=== PATIENT | female | born 1970 | race Caucasian/White ===

== ENCOUNTER → 2018-06-03 | Outpatient (CLI) | payer BC ==
[~2018-06-03] MED LIST: AMIT50TA3; CETI10CA; CRAN1CAP; HCT25T; HYDR-3720 PO; MELO7.5T PO; NF-TYLARTH PO; sprintec
--- NOTE | 2018-06-03 11:14 | Diagnostic Imaging Report ---
Indication: Screening. The current study was also evaluated with a Computer Aided Detection (CAD) system. Comparison made with prior examination of 09/11/2015 back through 05/22/2015. 3D tomosynthesis was performed and reviewed. Findings: There are scattered fibroglandular densities bilaterally. There are a few benign type calcifications. There is no dominant mass, spiculated lesion or suspicious calcification identified. The skin, nipples and axilla are unremarkable. Impression: Category 2 benign ACR BI-RADS Category 2: Benign findings. Result letter will be mailed to the patient. Note: At least 10% of breast cancer is not imaged by mammography. Dictated by: Dictated on workstation # [id number]
== END ==
LOC: RAD 07:50
PROVIDERS: ATTEND Nurse Practitioner Family
DX: Z12.31 Encounter for screening mammogram for malignant neoplasm of breast (principal)
CPT/HCPCS: 77067

== ENCOUNTER 2018-08-10 18:26 | Emergency (ER) | payer BC ==
[~2018-08-10] VITALS: Ht 167.6 cm; Wt 176.0 kg
--- OUTSIDE RECORDS SUMMARY | 2018-08-10 18:34 | XMS REPORT | Clinical Summary ---
Author Author [facility] Organization [facility] Address Unknown Phone Unavailable Care Team Providers Care Shredded Filler Machine Wrapper Layer Name Role Phone Unassigned, None PP Unavailable Allergies No Known Allergies Medications End Date Status Medication Sig Dispensed Refills Start Date Active ibuprofen (ADVIL,MOTRIN) Take 200 mg 0 200 MG tablet by mouth every 6 (six) hours as needed for Mild Pain. Active dicyclomine (BENTYL) 10 Take 10 mg by 0 MG capsule mouth 4 (four) times daily as needed. Active cetirizine (ZYRTEC) 10 MG Take 10 mg by 0 tablet mouth daily. Active estradiol (ESTRACE) 1 MG Take 0.5 mg 0 tablet by mouth nightly. Active ALPRAZolam (XANAX) 1 MG Take 1 mg by 0 tablet mouth 2 (two) times daily as needed. Active amitriptyline (ELAVIL) 50 Take 50 mg by 0 MG tablet mouth nightly. Active buPROPion (WELLBUTRIN XL) Take 300 mg 0 300 MG 24 hr tablet by mouth every morning. Active fluticasone (FLONASE) 50 1 spray by 16 g 0 MCG/ACT nasal spray Each Nare 5 route daily as needed for Rhinitis. Active mirtazapine (REMERON) 15 Take 1 tablet 30 tablet 0 MG tabletIndications: (15 mg total) 5 Major Depressive Disorder by mouth nightly. Indications: Major Depressive Disorder Active Problems Problem Noted Date Major depressive disorder, recurrent, severe without psychotic features 01/2015 Anxiety disorder 05/28/2015 Resolved Problems Problem Noted Date Resolved Date Suicidal ideation 05/25/2015 05/28/2015 Depressive disorder 05/24/2015 05/28/2015 Social History Date Tobacco Use Types Packs/Day Years Used Never Smoker Alcohol Use Drinks/Week oz/Week Comments No Sex Assigned at Date Recorded Not on file Industry Job Start Date Occupation Not on file Not on file Not on file Travel End Travel History Travel Start No recent travel history available. Last Filed Vital Signs Time Taken Vital Sign Reading 05/28/2015 9:27 AM [employer] Blood Pressure 156/78 05/28/2015 9:27 AM [employer] Pulse 84 05/28/2015 9:25 AM [employer] Temperature 36.6 C (97.9 F) 05/28/2015 9:25 AM [employer] Respiratory Rate 18 05/28/2015 9:25 AM [employer] Oxygen Saturation 100% - Inhaled Oxygen - Concentration 05/24/2015 3:55 PM [employer] Weight 170.1 kg (375 lb) 05/24/2015 3:55 PM [employer] Height 167.6 cm (5' 6") 05/24/2015 3:55 PM [employer] Body Mass Index 60.53 Plan of Treatment Health Maintenance Due Date Last Done Comments Varicella Vaccines (1 of 1985 2 - 13+ 2-dose series) DTaP,Tdap,and Td Vaccines 11/22/1991 (1 - Tdap) CERVICAL CANCER SCREENING 1993 Influenza Vaccine (#1) 2018 Results Not on filefrom Last 3 Months Insurance Type Payer Benefit Subscriber ID Effective Phone Address Plan / Dates Group [employer] xxxxxxxxx 2013-P [phone] [address] [address] [place] [address] Advance Directives Patient has advance care planning documents, and code status on file. For more information, please contact: [facility] [address] [address] Date Inactivated Comments Code Status Date Activated Full Code 05/28/2015 12:14 PM 05/28/2015 12:14 PM Full Code 05/24/2015 5:18 PM 05/24/2015 5:18 PM Full Code 05/24/2015 5:08 PM
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
[2018-08-10] MEDS ORDERED: ASPIRIN 81 MG CHEW (CHILDREN'S ASA) PO ONE ×2 (18:45)
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
--- OUTSIDE RECORDS SUMMARY | 2018-08-10 18:47 | XMS REPORT ---
Author CONSUELO Shields Organization [employer] Address Unknown Phone Unavailable Care Team Providers Care Commodity Industry Analyst Name Role Phone CONSUELO HANSON CP Unavailable Allergies No Known Allergies Problems Problem Type Condition Code Onset Dates Condition Status Assessment Major depressive disorder, recurrent, moderate F33.1 Active Problem Major depressive disorder, recurrent, moderate F33.1 Active Medications No Known Medications Procedures Procedure Coding System Code Date Psychotherapy, patient &/family, 45 minutes, established patient CPT-4 63427 Jun 11, 2015 Results No Known Results Summary Purpose [employer] Submission
--- OUTSIDE RECORDS SUMMARY | 2018-08-10 18:47 | XMS REPORT ---
Author CONSUELO Shields Organization [employer] Address Unknown Phone Unavailable Care Team Providers Care Workforce Consultant Name Role Phone CONSUELO HANSON CP Unavailable Allergies No Known Allergies Problems Problem Type Condition Code Onset Dates Condition Status Assessment Major depressive disorder, recurrent, moderate F33.1 Active Problem Major depressive disorder, recurrent, moderate F33.1 Active Medications No Known Medications Procedures Procedure Coding System Code Date Psychotherapy, patient &/family, 45 minutes, established patient CPT-4 44340 Jul 10, 2015 Results No Known Results Summary Purpose [employer] Submission
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
--- OUTSIDE RECORDS SUMMARY | 2018-08-10 18:48 | XMS REPORT ---
Author CONSUELO Shields Organization [employer] Address Unknown Phone Unavailable Care Team Providers Care Manager Budget Name Role Phone CONSUELO HANSON CP Unavailable Allergies No Known Allergies Problems Problem Type Condition Code Onset Dates Condition Status Assessment Major depressive disorder, recurrent, moderate F33.1 Active Assessment Anxiety disorder, unspecified F41.9 Active Problem Major depressive disorder, recurrent, moderate F33.1 Active Medications No Known Medications Procedures Procedure Coding System Code Date Psychotherapy, patient &/family, 45 minutes, established patient CPT-4 08862 January 09, 2016 Results No Known Results Summary Purpose [employer] Submission
--- OUTSIDE RECORDS SUMMARY | 2018-08-10 18:48 | XMS REPORT ---
Author Author CARISA BERUMEN [facility] Address Unknown Care Team Providers Care [employer] Name Role Phone CARISA BERUMEN Unavailable PROBLEMS Type Condition ICD9-CM Code [id number] Code Onset Dates Condition Status SNOMED Code Problem Generalized anxiety disorder F41.1 Active 54585389 Problem Major depressive disorder, recurrent, moderate F33.1 Active 71268924 ALLERGIES Unknown Allergies SOCIAL HISTORY No smoking Hx information available PLAN OF CARE Activity Details Follow Up 3 Months Reason: VITAL SIGNS Height 67.7 in 2016-05-20 Weight 341.8 lbs 2016-05-20 Heart Rate 74 bpm 2016-05-20 Respiratory Rate 20 2016-05-20 BMI 52.43 kg/m2 2016-05-20 Blood pressure systolic 138 mmHg 2016-05-20 Blood pressure diastolic 76 mmHg 2016-05-20 MEDICATIONS Medication Instructions Dosage Frequency Start Date End Date Duration Status Zyrtec Allergy 10 MG Orally Once a day 1 tablet as needed 24h Active Mirtazapine 45 MG Orally Once a day 1 tablet before bedtime in the evening 24h May, 30 days Active Biotin 800 MCG Orally Once a day 1 tablet 24h Active Dicyclomine HCl 10 MG Orally Four times a day 1 capsule 6h Active Lexapro 10 MG Orally Once a day 1 tablet 24h Nov, 30 days Active Tylenol 325 MG Orally every 6 hrs 1 tablet as needed 6h Active Amitriptyline HCl 50 MG Orally Once a day 1 tablet 24h Sep, Active Fish Oil 1000 MG Orally Once a day 2 capsules 24h Active Alprazolam 2 MG Orally as needed Twice a day 1 tablet 12h 30 days Active Aleve 220 MG Orally every 12 hrs 1 tablet as needed 12h Active Ibuprofen 200 MG Orally every 6 hrs 1 tablet as needed 6h Active Phentermine HCl 37.5 MG Orally Once a day .5 tab 24h Active Flonase Active Estradiol 0.5 MG Orally Once a day 1 tablet 24h Active Vitamin D-3 1000 UNIT Orally Once a day 5 capsule 24h Active Synthroid 25 MCG Orally Once a day 1 tablet on an empty stomach in the morning 24h Active Womens Daily Formula - Active Sudafed 30 MG Orally every 6 hrs 1 tablet as needed 6h Active RESULTS No Results PROCEDURES Procedure Date Ordered Related Diagnosis Body Site Office Visit, Est Pt., Level 3 May 20, 2016 IMMUNIZATIONS No Known Immunizations
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
--- OUTSIDE RECORDS SUMMARY | 2018-08-10 18:49 | XMS REPORT ---
Author CARISA Meade [facility] eClinicalWorks Address Unknown Phone Unavailable Care Team Providers Care Behavioral Health Technician Name Role Phone CARISA BERUMEN CP Unavailable Allergies, Adverse Reactions, Alerts Substance Reaction Event Type N.K.D.A. Info Not Available Non Drug Allergy Problems Problem Type Condition Code Onset Dates Condition Status Assessment Anxiety disorder, unspecified F41.9 Active Assessment Major depression, recurrent F33.9 Active Problem Major depressive disorder, recurrent, moderate F33.1 Active Medications Medication Code System Code Instructions Start Date End Date Status Dosage Probiotic [facility] [address]95-48502 Orally not defined Tylenol [facility] [address]-33 325 MG Orally every 6 hrs 1 tablet as needed Amitriptyline HCl [facility] [address]-57 50 MG Orally Once a day 1 tablet Biotin [facility] 64922-14875 800 MCG Orally Once a day 1 tablet Zyrtec Allergy [facility] [address]-26 10 MG Orally Once a day 1 tablet as needed Ibuprofen [facility] [address]-22 200 MG Orally every 6 hrs 1 tablet as needed Wellbutrin XL [facility] [address]-06 300 MG Orally Once a day Apr 12, 2015 1 tablet in the morning Estradiol [facility] [address]-12 0.5 MG Orally Once a day 1 tablet Xanax [facility] [address]-72 2 MG Orally Twice a day May 15, 2015 1 tablet Mirtazapine [facility] [address]-12 45 MG Orally Once a day Jun 03, 2015 1 tablet before bedtime in the evening Sudafed [facility] [address]-22 30 MG Orally every 6 hrs 1 tablet as needed Dicyclomine HCl [facility] [address]-05 10 MG Orally Four times a day 1 capsule Aleve [facility] [address]-33 220 MG Orally every 12 hrs 1 tablet as needed Flonase ND 0 not defined Procedures Procedure Coding System Code Date MH Office Visit, Est Pt., Level 3 CPT-4 29348 Jul 17, 2015 Vital Signs Date/Time: Jul 17, 2015 Blood Pressure Systolic 152 mmHg Weight 381 lbs Height 67.7 in BMI 58.44 Index Blood Pressure Diastolic 88 mmHg Results No Known Results Summary Purpose eClinicalWorks Submission
--- OUTSIDE RECORDS SUMMARY | 2018-08-10 18:49 | XMS REPORT ---
Author CONSUELO Shields Organization e[employer] Address Unknown Phone Unavailable Care Team Providers Care Dry Wall Sprayer Name Role Phone CONSUELO HANSON CP Unavailable Allergies No Known Allergies Problems Problem Type Condition Code Onset Dates Condition Status Assessment Major depressive disorder, recurrent, moderate F33.1 Active Problem Major depressive disorder, recurrent, moderate F33.1 Active Medications No Known Medications Procedures Procedure Coding System Code Date Psychotherapy, patient &/family, 45 minutes, established patient CPT-4 91688 October 04, 2015 Results No Known Results Summary Purpose eClinicalWorks Submission
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
--- OUTSIDE RECORDS SUMMARY | 2018-08-10 18:50 | XMS REPORT ---
Author CONSUELO Shields Organization [employer] Address Unknown Phone Unavailable Care Team Providers Care Lead Neurodiagnostic Technologist Name Role Phone CONSUELO HANSON CP Unavailable Allergies No Known Allergies Problems Problem Type Condition Code Onset Dates Condition Status Assessment Major depressive disorder, recurrent, moderate F33.1 Active Assessment Anxiety disorder, unspecified F41.9 Active Problem Major depressive disorder, recurrent, moderate F33.1 Active Medications No Known Medications Procedures Procedure Coding System Code Date Psychotherapy, patient &/family, 45 minutes, established patient CPT-4 18950 December 26, 2015 Results No Known Results Summary Purpose [employer] Submission
--- OUTSIDE RECORDS SUMMARY | 2018-08-10 18:50 | XMS REPORT ---
Author CARISA Meade Organization [employer] Address Unknown Phone Unavailable Care Team Providers Care Education Professor Name Role Phone CARISA BERUMEN Unavailable Allergies No Known Allergies Problems Problem Type Condition Code Onset Dates Condition Status Problem Major depressive disorder, recurrent, moderate F33.1 Active Medications Medication Code System Code Instructions Start Date End Date Status Dosage Xanax [facility] [address]-63 2 MG Orally Twice a day May 15, 2015 1 tablet Results No Known Results Summary Purpose [employer] Submission
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
--- OUTSIDE RECORDS SUMMARY | 2018-08-10 18:51 | XMS REPORT ---
Author Author CONSUELO HANSON [facility] Address [address] [place] [address] Care Team Providers Care Take Up Operator Name Role Phone CONSUELO HANSON Unavailable PROBLEMS Type Condition ICD9-CM Code [id number] Code Onset Dates Condition Status SNOMED Code Problem Major depressive disorder, recurrent, moderate F33.1 Active 64445529 Assessment Major depressive disorder, recurrent, moderate F33.1 Feb, Active 32840638 ALLERGIES Unknown Allergies SOCIAL HISTORY No smoking Hx information available PLAN OF CARE VITAL SIGNS MEDICATIONS Unknown Medications RESULTS No Results PROCEDURES Procedure Date Ordered Related Diagnosis Body Site Psychotherapy, patient &/family, 45 minutes, established patient Mar 05, 2016 IMMUNIZATIONS No Known Immunizations
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
--- OUTSIDE RECORDS SUMMARY | 2018-08-10 18:51 | XMS REPORT ---
Author CONSUELO Shields Organization [employer] Address Unknown Phone Unavailable Care Team Providers Care Delinquent Account Clerk Name Role Phone CONSUELO HANSON CP Unavailable Allergies No Known Allergies Problems Problem Type Condition Code Onset Dates Condition Status Assessment Major depressive disorder, recurrent, moderate F33.1 Active Problem Major depressive disorder, recurrent, moderate F33.1 Active Medications No Known Medications Procedures Procedure Coding System Code Date Psychotherapy, patient &/family, 45 minutes, established patient CPT-4 95610 Jun 20, 2015 Results No Known Results Summary Purpose [employer] Submission
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
--- OUTSIDE RECORDS SUMMARY | 2018-08-10 18:52 | XMS REPORT ---
Author CARISA Meade Organization [employer] Address Unknown Phone Unavailable Care Team Providers Care Practice Administrator Name Role Phone CARISA BERUMEN Unavailable Allergies No Known Allergies Problems Problem Type Condition Code Onset Dates Condition Status Problem Major depressive disorder, recurrent, moderate F33.1 Active Medications Medication Code System Code Instructions Start Date End Date Status Dosage Xanax [facility] [address]-89 2 MG Orally Twice a day May 15, 2015 1 tablet Results No Known Results Summary Purpose [employer] Submission
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
--- OUTSIDE RECORDS SUMMARY | 2018-08-10 18:52 | XMS REPORT ---
Author CARISA Meade Organization [employer] Address Unknown Phone Unavailable Care Team Providers Care Transcripter Name Role Phone CARISA BERUMEN CP Unavailable Allergies No Known Allergies Problems Problem Type Condition Code Onset Dates Condition Status Problem Major depressive disorder, recurrent, moderate F33.1 Active Medications No Known Medications Results No Known Results Summary Purpose [employer] Submission
--- OUTSIDE RECORDS SUMMARY | 2018-08-10 18:53 | XMS REPORT ---
Author CONSUELO Shields Organization [employer] Address Unknown Phone Unavailable Care Team Providers Care Tooth Cutter Spur Name Role Phone CONSUELO HANSON CP Unavailable Allergies No Known Allergies Problems Problem Type Condition Code Onset Dates Condition Status Assessment Major depressive disorder, recurrent, moderate F33.1 Active Problem Major depressive disorder, recurrent, moderate F33.1 Active Medications No Known Medications Procedures Procedure Coding System Code Date Psychotherapy, patient &/family, 45 minutes, established patient CPT-4 [id number] Jul 18, 2015 Results No Known Results Summary Purpose [employer] Submission
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
--- OUTSIDE RECORDS SUMMARY | 2018-08-10 18:53 | XMS REPORT ---
Author CONSUELO Shields Organization [employer] Address Unknown Phone Unavailable Care Team Providers Care Applications Consultant Name Role Phone CONSUELO HANSON CP Unavailable Allergies No Known Allergies Problems Problem Type Condition Code Onset Dates Condition Status Assessment Major depressive disorder, recurrent, moderate F33.1 Active Assessment Anxiety disorder, unspecified F41.9 Active Problem Major depressive disorder, recurrent, moderate F33.1 Active Medications No Known Medications Procedures Procedure Coding System Code Date Psychotherapy, patient &/family, 45 minutes, established patient CPT-4 76023 May 02, 2015 Results No Known Results Summary Purpose [employer] Submission
--- OUTSIDE RECORDS SUMMARY | 2018-08-10 18:53 | XMS REPORT ---
Author Author CONSUELO HANSON Organization [facility] Address [address] [place] [address] Care Team Providers Care Hydraulic Assembler Name Role Phone CONSUELO HANSON Unavailable PROBLEMS Type Condition ICD9-CM Code WQS16-BX Code Onset Dates Condition Status SNOMED Code Problem Generalized anxiety disorder F41.1 Active 72252869 Problem Major depressive disorder, recurrent, moderate F33.1 Active 75908006 ALLERGIES No Information SOCIAL HISTORY Never Assessed PLAN OF CARE Activity Details Follow Up Weekly, 4pm Reason: VITAL SIGNS MEDICATIONS Unknown Medications RESULTS No Results PROCEDURES Procedure Date Ordered Result Body Site Psychotherapy, patient &/family, 45 minutes, established patient November 18, 2016 IMMUNIZATIONS No Known Immunizations MEDICAL (GENERAL) HISTORY Type Description Date Medical [...]
--- OUTSIDE RECORDS SUMMARY | 2018-08-10 18:53 | XMS REPORT ---
Author CONSUELO Shields Organization [employer] Address Unknown Phone Unavailable Care Team Providers Care Calibration Checker Name Role Phone CONSUELO HANSON CP Unavailable Allergies No Known Allergies Problems Problem Type Condition Code Onset Dates Condition Status Assessment Major depressive disorder, recurrent, moderate F33.1 Active Problem Major depressive disorder, recurrent, moderate F33.1 Active Medications No Known Medications Procedures Procedure Coding System Code Date Psychotherapy, patient &/family, 45 minutes, established patient CPT-4 74964 Aug 01, 2015 Results No Known Results Summary Purpose [employer] Submission
--- OUTSIDE RECORDS SUMMARY | 2018-08-10 18:53 | XMS REPORT ---
Author Author CONSUELO HANSON [facility] Address [address] [place] [address] Care Team Providers Care End Trimmer Name Role Phone CONSUELO HANSON Unavailable PROBLEMS Type Condition ICD9-CM Code OLC24-VP Code Onset Dates Condition Status SNOMED Code Problem Generalized anxiety disorder F41.1 Active 87620665 Problem Major depressive disorder, recurrent, moderate F33.1 Active 07064387 Assessment Major depressive disorder, recurrent, moderate F33.1 Apr, Active 58222762 ALLERGIES Unknown Allergies SOCIAL HISTORY No smoking Hx information available PLAN OF CARE VITAL SIGNS MEDICATIONS Unknown Medications RESULTS No Results PROCEDURES Procedure Date Ordered Related Diagnosis Body Site Psychotherapy, patient &/family, 45 minutes, established patient May 18, 2016 IMMUNIZATIONS No Known Immunizations
--- OUTSIDE RECORDS SUMMARY | 2018-08-10 18:53 | XMS REPORT ---
Author CONSUELO Shields Organization [employer] Address Unknown Phone Unavailable Care Team Providers Care Garment Looper Name Role Phone CONSUELO HANSON CP Unavailable Allergies No Known Allergies Problems Problem Type Condition Code Onset Dates Condition Status Assessment Major depressive disorder, recurrent, moderate F33.1 Active Problem Major depressive disorder, recurrent, moderate F33.1 Active Medications No Known Medications Procedures Procedure Coding System Code Date Psychotherapy, patient &/family, 45 minutes, established patient CPT-4 81537 September 26, 2015 Results No Known Results Summary Purpose [employer] Submission
--- OUTSIDE RECORDS SUMMARY | 2018-08-10 18:53 | XMS REPORT ---
Author CARISA Meade Organization [employer] Address Unknown Phone Unavailable Care Team Providers Care Women'S Lacrosse Coach Name Role Phone CARISA BERUMEN CP Unavailable [...] Instructions Start Date End Date Status Dosage Zyrtec Allergy [facility] [address]-42 10 MG Orally Once a day 1 tablet as needed Aleve [facility] [address]-52 220 MG Orally every 12 hrs 1 tablet as needed Dicyclomine HCl [facility] [address]-79 10 MG Orally Four times a day 1 capsule Amitriptyline HCl [facility] [address]-19 50 MG Orally Once a day 1 tablet Estradiol [facility] [address]-27 0.5 MG Orally Once a day 1 tablet Tylenol [facility] [address]-05 325 MG Orally every 6 hrs 1 tablet as needed Ibuprofen [facility] [address]-43 200 MG Orally every 6 hrs 1 tablet as needed Probiotic [facility] 69605-53813 Orally not defined Wellbutrin XL [facility] [address]-96 300 MG Orally Once a day Apr 12, 2015 1 tablet in the morning Klonopin [facility] [address]-25 1 MG Orally Twice a day May 10, 2015 1 tablet Procedures Procedure Coding System Code Date Office Visit, Est Pt., Level 3 CPT-4 84814 May 10, 2015 Vital Signs Date/Time: May 10, 2015 Blood Pressure Systolic 134 mmHg Weight 381 lbs Height 67.7 in BMI 58.44 Index Blood Pressure Diastolic 84 mmHg Results No Known Results Summary Purpose [employer] Submission
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
--- OUTSIDE RECORDS SUMMARY | 2018-08-10 18:54 | XMS REPORT ---
Author CARISA Meade [facility] eClinical[employer] Address Unknown Phone Unavailable Care Team Providers Care Developmental Training Counselor Name Role Phone CARISA BERUMEN CP Unavailable [...] Instructions Start Date End Date Status Dosage Alprazolam [facility] [address]-74 2 MG TAKE ONE TABLET BY MOUTH TWICE DAILY Dicyclomine HCl [facility] [address]-02 10 MG Orally Four times a day 1 capsule Mirtazapine [facility] [address]-39 45 MG Orally Once a day Jun 03, 2015 1 tablet before bedtime in the evening Ibuprofen [facility] [address]-70 200 MG Orally every 6 hrs 1 tablet as needed Biotin [facility] 25537-37033 800 MCG Orally Once a day 1 tablet Zyrtec Allergy [facility] [address]-66 10 MG Orally Once a day 1 tablet as needed Sudafed [facility] [address]-95 30 MG Orally every 6 hrs 1 tablet as needed Fish Oil [facility] [address]-03 1000 MG Orally Once a day 1 capsule Aleve [facility] [address]-69 220 MG Orally every 12 hrs 1 tablet as needed Flonase [facility] [address]-72 not defined Lexapro [facility] [address]-56 10 MG Orally Once a day December 02, 2015 1 tablet Probiotic [facility] 19151-05545 Orally not defined Amitriptyline HCl [facility] [address]-16 75 MG Orally Once a day September 23, 2015 1 tablet Estradiol [facility] [address]-81 0.5 MG Orally Once a day 1 tablet Procedures Procedure Coding System Code Date Office Visit, Est Pt., Level 3 CPT-4 40680 December 25, 2015 Vital Signs Date/Time: December 25, 2015 Cardiac Monitoring Heart Rate 90 bpm Weight 378.0 lbs Height 67.7 in Blood Pressure Diastolic 82 mmHg Blood Pressure Systolic 120 mmHg Results No Known Results Summary Purpose eClinicalWorks Submission
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
--- OUTSIDE RECORDS SUMMARY | 2018-08-10 18:54 | XMS REPORT ---
Author CONSUELO Shields Organization [employer] Address Unknown Phone Unavailable Care Team Providers Care Remelt Operator Name Role Phone CONSUELO HANSON CP Unavailable Allergies No Known Allergies Problems Problem Type Condition Code Onset Dates Condition Status Assessment Major depressive disorder, recurrent, moderate F33.1 Active Problem Major depressive disorder, recurrent, moderate F33.1 Active Medications No Known Medications Procedures Procedure Coding System Code Date Psychotherapy, patient &/family, 45 minutes, established patient CPT-4 21851 Apr 02, 2016 Results No Known Results Summary Purpose [employer] Submission
--- OUTSIDE RECORDS SUMMARY | 2018-08-10 18:55 | XMS REPORT ---
Author Author CONSUELO HANSON Organization [facility] Address [address] [place] [address] Care Team Providers Care Medical And Health Services Manager Name Role Phone CONSUELO HANSON Unavailable PROBLEMS Type Condition ICD9-CM Code MSI63-DM Code Onset Dates Condition Status SNOMED Code Problem Generalized anxiety disorder F41.1 Active 96718202 Problem Major depressive disorder, recurrent, moderate F33.1 Active 74587233 ALLERGIES No Information SOCIAL HISTORY Never Assessed PLAN OF CARE Activity Details Follow Up 4 Weeks Reason: VITAL SIGNS MEDICATIONS Unknown Medications RESULTS No Results PROCEDURES Procedure Date Ordered Result Body Site Psychotherapy, patient &/family, 45 minutes, established patient Aug 12, 2016 IMMUNIZATIONS No Known Immunizations MEDICAL (GENERAL) [...] History Childbirth Hospitalization History Surgeries Hospitalization History [facility] 05/24/2015 through 05/28/2015 05/24/2015
--- OUTSIDE RECORDS SUMMARY | 2018-08-10 18:55 | XMS REPORT ---
Author CARISA Meade [facility] [employer] Address Unknown Phone Unavailable Care Team Providers Care Medart Operator Name Role Phone CARISA BERUMEN CP Unavailable [...] Instructions Start Date End Date Status Dosage Ibuprofen [facility] [address]-57 200 MG Orally every 6 hrs 1 tablet as needed Flonase NDC 0 not defined Fish Oil [facility] [address]-19 1000 MG Orally Once a day 2 capsules Zyrtec Allergy [facility] [address]-90 10 MG Orally Once a day 1 tablet as needed Phentermine HCl [facility] [address]-84 37.5 MG Orally Once a day .5 tab Dicyclomine HCl [facility] [address]-62 10 MG Orally Four times a day 1 capsule Estradiol [facility] [address]-25 0.5 MG Orally Once a day 1 tablet Amitriptyline HCl [facility] [address]-15 50 MG Orally Once a day September 23, 2015 1 tablet Lexapro [facility] [address]-57 10 MG Orally Once a day December 02, 2015 1 tablet Mirtazapine [facility] [address]-12 45 MG Orally Once a day Jun 03, 2015 1 tablet before bedtime in the evening Vitamin D-3 [facility] [address]84-25235 1000 UNIT Orally Once a day 5 capsule Aleve [facility] [address]-26 220 MG Orally every 12 hrs 1 tablet as needed Probiotic [facility] 73868-40189 Orally not defined Womens Daily Formula [facility] 23893-31508 - Orally not defined Alprazolam [facility] [address]-45 2 MG TAKE ONE TABLET BY MOUTH TWICE DAILY Sudafed [facility] [address]-03 30 MG Orally every 6 hrs 1 tablet as needed Synthroid [facility] [address]-29 25 MCG Orally Once a day 1 tablet on an empty stomach in the morning Procedures Procedure Coding System Code Date MH Office Visit, Est Pt., Level 3 CPT-4 01818 Feb 19, 2016 Vital Signs Date/Time: Feb 19, 2016 Cardiac Monitoring Heart Rate 72 bpm Weight 367.6 lbs Height 67.7 in BMI 56.38 Index Blood Pressure Diastolic 86 mmHg Blood Pressure Systolic 140 mmHg Results No Known Results Summary Purpose [employer] Submission
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
--- OUTSIDE RECORDS SUMMARY | 2018-08-10 18:56 | XMS REPORT ---
Author Author CONSUELO HANSON Organization [facility] Address [address] [place] [address] Care Team Providers Care Bull Bucker Name Role Phone CONSUELO HANSON Unavailable PROBLEMS Type Condition ICD9-CM Code YWP84-SS Code Onset Dates Condition Status SNOMED Code Problem Generalized anxiety disorder F41.1 Active 79583824 Problem Major depressive disorder, recurrent, moderate F33.1 Active [id number] ALLERGIES No Information SOCIAL HISTORY Never Assessed PLAN OF CARE Activity Details Follow Up 2 Months Reason: VITAL SIGNS MEDICATIONS Unknown Medications RESULTS No Results PROCEDURES Procedure Date Ordered Result Body Site Psychotherapy, patient &/family, 45 minutes, established patient September 09, 2016 IMMUNIZATIONS No Known Immunizations MEDICAL (GENERAL) [...] Hospitalization History Surgeries Hospitalization History [facility] 05/24/2015 through 05/28/2015 05/24/2015
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
--- OUTSIDE RECORDS SUMMARY | 2018-08-10 18:57 | XMS REPORT ---
Author CONSUELO Shields Organization [employer] Address Unknown Phone Unavailable Care Team Providers Care Range Mounter Name Role Phone CONSUELO HANSON CP Unavailable Allergies No Known Allergies Problems Problem Type Condition Code Onset Dates Condition Status Assessment Major depressive disorder, recurrent, moderate F33.1 Active Problem Major depressive disorder, recurrent, moderate F33.1 Active Medications No Known Medications Procedures Procedure Coding System Code Date Psychotherapy, patient &/family, 45 minutes, established patient CPT-4 91628 Jun 06, 2015 Results No Known Results Summary Purpose [employer] Submission
--- OUTSIDE RECORDS SUMMARY | 2018-08-10 18:57 | XMS REPORT ---
Author CONSUELO Shields Organization [employer] Address Unknown Phone Unavailable Care Team Providers Care Machine Setter Name Role Phone CONSUELO HANSON CP Unavailable Allergies No Known Allergies Problems Problem Type Condition Code Onset Dates Condition Status Assessment Major depressive disorder, recurrent, moderate F33.1 Active Problem Major depressive disorder, recurrent, moderate F33.1 Active Medications No Known Medications Procedures Procedure Coding System Code Date Psychotherapy, patient &/family, 45 minutes, established patient CPT-4 49016 May 23, 2015 Results No Known Results Summary Purpose [employer] Submission
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
--- OUTSIDE RECORDS SUMMARY | 2018-08-10 18:57 | XMS REPORT ---
Author CAIRSA Meade Organization [employer] Address Unknown Phone Unavailable Care Team Providers Care Tax Revenue Officer Name Role Phone CARISA BERUMEN Unavailable Allergies No Known Allergies Problems Problem Type Condition Code Onset Dates Condition Status Problem Major depressive disorder, recurrent, moderate F33.1 Active Medications Medication Code System Code Instructions Start Date End Date Status Dosage Alprazolam [facility] [address]-08 2 MG TAKE ONE TABLET BY MOUTH TWICE DAILY Results No Known Results Summary Purpose [employer] Submission
--- OUTSIDE RECORDS SUMMARY | 2018-08-10 18:57 | XMS REPORT ---
Author CONSUELO Shields Organization [employer] Address Unknown Phone Unavailable Care Team Providers Care Orthopedic Shoes Salesperson Name Role Phone CONSUELO HANSON CP Unavailable Allergies No Known Allergies Problems Problem Type Condition Code Onset Dates Condition Status Assessment Major depressive disorder, recurrent, moderate F33.1 Active Problem Major depressive disorder, recurrent, moderate F33.1 Active Medications No Known Medications Procedures Procedure Coding System Code Date Psychotherapy, patient &/family, 45 minutes, established patient CPT-4 33560 Jun 27, 2015 Results No Known Results Summary Purpose [employer] Submission
--- OUTSIDE RECORDS SUMMARY | 2018-08-10 18:57 | XMS REPORT ---
Author CARISA Meade [facility] [employer] Address Unknown Phone Unavailable Care Team Providers Care Machine I Trimmer Name Role Phone CARISA BERUMEN CP Unavailable [...] Start Date End Date Status Dosage Ibuprofen [facility] [address]-90 200 MG Orally every 6 hrs 1 tablet as needed Probiotic [facility] [address]11 Orally not defined Xanax [facility] [address]-08 2 MG Orally Twice a day May 15, 2015 1 tablet Tylenol [facility] [address]-32 325 MG Orally every 6 hrs 1 tablet as needed Wellbutrin XL [facility] [address]-16 300 MG Orally Once a day Apr 12, 2015 1 tablet in the morning Zyrtec Allergy [facility] [address]-93 10 MG Orally Once a day 1 tablet as needed Dicyclomine HCl [facility] [address]-47 10 MG Orally Four times a day 1 capsule Estradiol [facility] [address]-61 0.5 MG Orally Once a day 1 tablet Amitriptyline HCl [facility] [address]-69 50 MG Orally Once a day 1 tablet Mirtazapine [facility] [address]-56 45 MG Orally Once a day Jun 03, 2015 1 tablet before bedtime in the evening Aleve [facility] [address]-97 220 MG Orally every 12 hrs 1 tablet as needed Sudafed [facility] [address]-58 30 MG Orally every 6 hrs 1 tablet as needed Flonase ND 0 not defined Procedures Procedure Coding System Code Date Office Visit, Est Pt., Level 3 CPT-4 12034 Jun 03, 2015 Vital Signs Date/Time: Jun 03, 2015 Cardiac Monitoring Heart Rate 85 bpm Weight 383.2 lbs Height 67.7 in BMI 58.78 Index Blood Pressure Diastolic 73 mmHg Blood Pressure Systolic 124 mmHg Results No Known Results Summary Purpose [employer] Submission
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
--- OUTSIDE RECORDS SUMMARY | 2018-08-10 18:58 | XMS REPORT ---
Author Author CONSUELO HANSON [facility] Address [address] [place] [address] Care Team Providers Care Field Marketing Coordinator Name Role Phone CONSUELO HANSON Unavailable PROBLEMS Type Condition ICD9-CM Code XIW12-PT Code Onset Dates Condition Status SNOMED Code Problem Generalized anxiety disorder F41.1 Active 11102371 Problem Major depressive disorder, recurrent, moderate F33.1 Active 99968689 ALLERGIES Unknown Allergies SOCIAL HISTORY No smoking Hx information available PLAN OF CARE Activity Details Follow Up 2 Months Reason: VITAL SIGNS MEDICATIONS Unknown Medications RESULTS No Results PROCEDURES Procedure Date Ordered Related Diagnosis Body Site Psychotherapy, patient &/family, 45 minutes, established patient Jun 18, 2016 IMMUNIZATIONS No Known Immunizations
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
--- OUTSIDE RECORDS SUMMARY | 2018-08-10 18:59 | XMS REPORT ---
Author Author CARISA Mc Organization [facility] [place] Address Unknown Care Team Providers Care Anchorman Name Role Phone CARISA Mc Unavailable PROBLEMS Type Condition ICD9-CM Code EQA18-AQ Code Onset Dates Condition Status SNOMED Code Problem Generalized anxiety disorder F41.1 Active 12944572 Problem Major depressive disorder, recurrent, moderate F33.1 Active 68974891 ALLERGIES No Known Allergies SOCIAL HISTORY Never Assessed PLAN OF CARE Activity Details Follow Up prn Reason: VITAL SIGNS Height 67.7 in 2016-08-24 Weight 332 lbs 2016-08-24 Heart Rate 76 bpm 2016-08-24 Respiratory Rate 18 2016-08-24 BMI 50.92 kg/m2 2016-08-24 Blood pressure systolic 102 mmHg 2016-08-24 Blood pressure diastolic 70 mmHg 2016-08-24 MEDICATIONS Medication Instructions Dosage Frequency Start Date End Date Duration Status Lexapro 5 MG Orally Once a day 1 tablet 24h Aug, 30 day(s) Active Sudafed 30 MG Orally every 6 hrs 1 tablet as needed 6h Active Biotin 800 MCG Orally Once a day 1 tablet 24h Active Estradiol 0.5 MG Orally Once a day 1 tablet 24h Active Fish Oil 1000 MG Orally Once a day 2 capsules 24h Active Vitamin D-3 1000 UNIT Orally Once a day 5 capsule 24h Active Womens Daily Formula - Active Dicyclomine HCl 10 MG Orally Four times a day 1 capsule 6h Active Ibuprofen 200 MG Orally every 6 hrs 1 tablet as needed 6h Active Flonase Active Amitriptyline HCl 50 MG Orally Once a day 1 tablet 24h Sep, Active Zyrtec Allergy 10 MG Orally Once a day 1 tablet as needed 24h Active Adderall 10 mg Orally 2 times a day 1 tablet in the morning 12h Active Aleve 220 MG Orally every 12 hrs 1 tablet as needed 12h Active Synthroid 75 MCG Orally Once a day 1/2 tab in the morning on an empty stomach 24h Active RESULTS No Results PROCEDURES No Known procedures IMMUNIZATIONS No Known Immunizations MEDICAL (GENERAL) HISTORY [...]
--- OUTSIDE RECORDS SUMMARY | 2018-08-10 18:59 | XMS REPORT ---
Author CARISA Meade Organization [employer] Address Unknown Phone Unavailable Care Team Providers Care Mechanical Assembly Name Role Phone CARISA BERUMEN Unavailable Allergies No Known Allergies Problems Problem Type Condition Code Onset Dates Condition Status Problem Major depressive disorder, recurrent, moderate F33.1 Active Medications No Known Medications Results No Known Results Summary Purpose [employer] Submission
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
--- OUTSIDE RECORDS SUMMARY | 2018-08-10 19:00 | XMS REPORT | Continuity of Care Document ---
Author Author [facility] Address Unknown Phone Unavailable Allergies Active Description Code Type Severity Reaction Onset Reported/Identified Relationship to Patient Clinical Status Yes No Known Drug Allergies [id number] Drug Allergy Unknown N/A 02/06/2011 Medications Medication Packaging Start Date Stop Date Route Dosage Sig TRAZODONE HCL 100 MG PO TABS 09/2014 Oral 100 BEDTIME PRN OLANZAPINE 10 MG PO TBDP 2014 Sublingual 10 2 TIMES DAILY PRN QUETIAPINE FUMARATE 25 MG PO TABS 05/24/2015 Oral 25 4 TIMES DAILY PRN MAGNESIUM HYDROXIDE 400 MG/5ML PO SUSP 05/24/2015 Oral 30 DAILY PRN ALUM T MAG HYDROXIDE-SIMETH 200-200-20 MG/5ML PO SUSP 05/24/2015 Oral 30 4 TIMES DAILY PRN OLANZAPINE 10 MG PO TBDP 2014 Sublingual 10 2 TIMES DAILY PRN ALUM T MAG HYDROXIDE-SIMETH 200-200-20 MG/5ML PO SUSP 05/24/2015 Oral 30 4 TIMES DAILY PRN TRAZODONE HCL 100 MG PO TABS 09/2014 Oral 100 BEDTIME PRN ACETAMINOPHEN 325 MG PO TABS 09/2014 Oral 325 EVERY 6 HOURS PRN DICYCLOMINE HCL 10 MG PO CAPS 09/2014 Oral 10 4 TIMES DAILY PRN MAGNESIUM HYDROXIDE 400 MG/5ML PO SUSP 05/24/2015 Oral 30 DAILY PRN IBUPROFEN 200 MG PO TABS 2014 Oral 200 EVERY 6 HOURS PRN NAPROXEN 500 MG PO TABS 2014 Oral 250 2 TIMES DAILY PRN QUETIAPINE FUMARATE 25 MG PO TABS 05/24/2015 Oral 25 4 TIMES DAILY PRN CETIRIZINE HCL 10 MG PO TABS 09/2014 Oral 10 DAILY FLUTICASONE PROPIONATE 50 MCG/ACT NA SUSP 05/24/2015 Each Nare 1 DAILY PRN CETIRIZINE HCL 10 MG PO TABS 09/2014 Oral 10 NIGHTLY AMITRIPTYLINE HCL 25 MG PO TABS 05/24/2015 Oral 50 NIGHTLY ESTRADIOL 1 MG PO TABS 2014 Oral 0.5 NIGHTLY FLUTICASONE PROPIONATE 50 MCG/ACT NA SUSP 05/24/2015 Each Nare 1 NIGHTLY MELRJBU-MCAWEUA-JYGLOY KELVIN 1.2-5.7-6.3 % EX 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 02/11/2011 Ot 218.2 SUBSEROUS LEIOMYOMA 02/11/2011 Ot 278.01 MORBID OBESITY 02/11/2011 Ot 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 02/11/2011 Ot 620.0 FOLLICULAR CYST OF OVARY 02/11/2011 Ot 620.8 NONINFL DIS OVA/ADNX NEC 02/11/2011 Ot 625.6 FEM STRESS INCONTINENCE 02/11/2011 Ot 788.33 INCONTINENCE - MIXED (MALE/FEMALE) 02/11/2011 Ot V85.43 BODY MASS INDEX 50.0-59.9, ADULT 05/24/2015 ELIJAH GONZALEZ V [id number] Suicidal TANJIM, [facility] 05/24/2015 ELIJAH GONZALEZ V [id number] Suicidal TANJIM, [facility] 05/24/2015 ELIJAH GONZALEZ V 045450 Suicidal TANJIM, [facility] 05/24/2015 ELIJAH GONZALEZ V 146292 Suicidal TANJIM, [facility] 05/24/2015 ELIJAH GONZALEZ V 707855 Suicidal TANJIM, [facility] 05/24/2015 GONZALEZ, ELIJAH B V [id number] Suicidal TANJIM, [facility] 05/25/2015 GONZALEZ, ELIJAH B V [id number] Suicidal TANJIM, [facility] 05/25/2015 GONZALEZ, ELIJAH B V 513154 Suicidal TANJIM, [facility] 05/25/2015 GONZALEZ, ELIJAH B V [id number] Suicidal TANJIM, [facility] 05/25/2015 GONZALEZ, ELIJAH B P R45.851 Suicidal ideations TANJIM, [facility] 05/26/2015 GONZALEZ, ELIJAH B V 495841 Suicidal TANJIM, [facility] 05/26/2015 GONZALEZ, ELIJAH B P R45.851 Suicidal ideations TANJIM, [facility] 05/27/2015 GONZALEZ, ELIJAH B V 325997 Suicidal TANJIM, [facility] 05/27/2015 GONZALEZ, ELIJAH B P R45.851 Suicidal ideations TANJIM, [facility] 05/27/2015 GONZALEZ, ELIJAH B V 591952 Suicidal GONZALEZ, ELIJAH B 05/27/2015 GONZALEZ, ELIJAH B P R45.851 Suicidal ideations GONZALZE, ELIJAH B 05/27/2015 GONZALEZ, ELIJAH B V 057250 Suicidal GONZALEZ, ELIJAH B 05/27/2015 GONZALEZ, ELIJAH B P R45.851 Suicidal ideations GONZALEZ, ELIJAH B 05/27/2015 GONZALEZ, ELIJAH B V 171401 Suicidal GONZALEZ, ELIJAH B 05/27/2015 GONZALEZ, ELIJAH B P R45.851 Suicidal ideations GONZALEZ, ELIJAH B 05/27/2015 GONZALEZ, ELIJAH B V 867741 Suicidal GONZALEZ, ELIJAH B 05/27/2015 GONZALEZ, ELIJAH B P R45.851 Suicidal ideations GONZALEZ, ELIJAH B 05/28/2015 GONZALEZ, ELIJAH B V 601437 Suicidal GONZALEZ, ELIJAH B 05/28/2015 GONZALEZ, ELIJAH B P F33.2 Major depressive disorder, recurrent severe without psychotic features GONZALEZ, ELIJAH B 05/28/2015 GONZALEZ, ELIJAH B V 211449 Suicidal GONZALEZ, ELIJAH B 05/28/2015 GONZALEZ, ELIJAH B P R45.851 Suicidal ideations GONZALEZ, [facility] B 05/28/2015 GONZALEZ, ELIJAH B V 712596 Suicidal GONZALEZ, ELIJAH B 05/28/2015 GONZALEZ, LEIJAH B P R45.851 Suicidal ideations GONZALEZ, ELIJAH B 05/28/2015 GONZALEZ, ELIJAH B V 113805 Suicidal GONZALEZ, ELIJAH B 05/28/2015 GONZALEZ, ELIJAH B P R45.851 Suicidal ideations GONZALEZ, ELIJAH B 05/28/2015 GONZALEZ, ELIJAH B V 429698 Suicidal GONZALEZ, ELIJAH B 05/28/2015 GONZALEZ, ELIJAH B P F33.2 Major depressive disorder, recurrent severe without psychotic features GONZALEZ, ELIJAH B 05/28/2015 GONZALEZ, ELIJAH B V 503020 Suicidal GONZALEZ, ELIJAH B 05/28/2015 GONZALEZ, ELIJAH B P F33.2 Major depressive disorder, recurrent severe without psychotic features GONZALEZ, ELIJAH B 05/28/2015 GONZALEZ, ELIJAH B V 278206 Suicidal GONZALEZ, ELIJAH B 05/28/2015 GONZALEZ, ELIJAH B P F33.2 Major depressive disorder, recurrent severe without psychotic features GONZALEZ, ELIJAH Cai 05/31/2015 TURNER DO CHEMO C Ot Z12.31 09/10/2015 MORGAN JON ALTERATIONS SUPERVISOR Ot R22.1 09/11/2015 Ot 617.9 09/11/2015 Ot 625.6 09/11/2015 Ot V72.63 09/11/2015 Ot V74.8 09/11/2015 JOHNNY ESCALANTE CHEMO C Ot V72.31 09/11/2015 CHEMO TURNER DO C Ot V76.12 09/11/2015 TURNERBjorn ESCALANTE CHEMO C Ot Z12.31 09/11/2015 PARIS JONI L ALTERATIONS SUPERVISOR Ot R22.1 09/12/2015 COSENS DO, DONNIE L Ot N63 09/12/2015 COSENS ESCALANTE, DONNIE L Ot N64.4 09/24/2015 PARIS JONI L ALTERATIONS SUPERVISOR Ot R22.1 09/24/2015 CHRISTIANO DO, DONNIE L Ot N63 09/24/2015 CHRISTIANO ESCALANTE, DONNIE L Ot N64.4 10/03/2015 KRISTIN RONDON, TERRI Rabago Ot M54.2 10/03/2015 TERRI FOSTER MD Ot R22.1 10/15/2015 TERRI FOSTER MD Ot M54.2 CERVICALGIA 10/15/2015 KRISTIN RONDON, TERRI Rabago Ot R22.1 LOCALIZED SWELLING, MASS AND LUMP, NECK 02/13/2016 CHRISTIANO ESCALANTE, DONNIE L 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 02/14/2016 STEFANI DO, DONNIE L 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 02/14/2016 CHRISTIANO DO, DONNIE L 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 02/19/2016 CHRISTIANO ESCALANTE, DONNIE L 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 02/21/2016 Ot 617.9 ENDOMETRIOSIS NOS 02/21/2016 Ot 625.6 FEM STRESS INCONTINENCE 02/21/2016 Ot V72.63 PRE- PROCEDURAL LABORATORY EXAMINATION 02/21/2016 Ot V74.8 SCREEN- BACTERIAL DIS NEC 02/21/2016 CHEMO TURNER DO Ot V72.31 ROUTINE GYNECOLOGICAL EXAMINATION 02/21/2016 CHEMO TURNER DO Ot V76.12 OTH SCREEN MAMMO-MALIGN NEOPLASM OF ABRAHAM 02/21/2016 CHEMO TURNER DO Ot Z12.31 ENCNTR SCREEN MAMMOGRAM FOR MALIGNANT NE 02/21/2016 MORGAN JON ALTERATIONS SUPERVISOR Ot R22.1 LOCALIZED SWELLING, MASS AND LUMP, NECK 02/21/2016 CHRISTIANO ESCALANTE DONNIE L Ot N63 UNSPECIFIED LUMP IN BREAST 02/21/2016 CHRISTIANO ESCALANTE DONNIE L Ot N64.4 MASTODYNIA 02/21/2016 KRISTIN RONDON, TERRI Rabago Ot M54.2 CERVICALGIA 02/21/2016 KRISTIN RONDON, TERRI Rabago Ot R22.1 LOCALIZED SWELLING, MASS AND LUMP, NECK 02/21/2016 CHRISTIANO ESCALANTE DONNIE L 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 02/26/2016 STEFANIENS , DONNIE L 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 04/30/2017 LURDES, EDELMIRA L ALTERATIONS SUPERVISOR Ot R10.32 LEFT LOWER QUADRANT PAIN 04/30/2017 LURDES, EDELMIRA L ALTERATIONS SUPERVISOR Ot R19.4 CHANGE IN BOWEL HABIT 05/11/2017 LURDES, EDELMIRA L ALTERATIONS SUPERVISOR Ot R10.32 LEFT LOWER QUADRANT PAIN 05/11/2017 LURDES, EDELMIRA L ALTERATIONS SUPERVISOR Ot R19.4 CHANGE IN BOWEL HABIT 06/02/2018 CHEMO TURNER DO Ot V72.31 ROUTINE GYNECOLOGICAL EXAMINATION 06/02/2018 JOHNNY ESCALANTE CHEMO C Ot V76.12 OTH SCREEN MAMMO-MALIGN NEOPLASM OF ABRAHAM 06/02/2018 JOHNNY ESCALANTE CHEMO C Ot Z12.31 ENCNTR SCREEN MAMMOGRAM FOR MALIGNANT NE 06/02/2018 MORGAN JON Cindy ALTERATIONS SUPERVISOR Ot R22.1 LOCALIZED SWELLING, MASS AND LUMP, NECK 06/02/2018 COSENS DO, DONNIE L Ot N63 UNSPECIFIED LUMP IN BREAST 06/02/2018 COSENS DO, DONNIE L Ot N64.4 MASTODYNIA 06/02/2018 KRISTIN RONDON, TERRI Rabago Ot M54.2 CERVICALGIA 06/02/2018 KRISTIN RONDON, TERRI Rabago Ot R22.1 LOCALIZED SWELLING, MASS AND LUMP, NECK 06/02/2018 STEFANIENS DO, DONNIE L 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 Results Test Result Range T4, FREE - 05/25/15 05:51 FREE T4 1.04 ng/dL 0.70-1.71 Automated blood complete blood count (hemogram) panel - 02/13/16 08:34 Blood leukocytes automated count (number/volume) 6.7 10*3/uL 4.3-11.0 Blood erythrocytes automated count (number/volume) 4.60 10*6/uL 4.35-5.85 Venous blood hemoglobin measurement (mass/volume) 13.9 g/dL 11.5-16.0 Blood hematocrit (volume fraction) 41 % 35-52 Automated erythrocyte mean corpuscular volume 90 [foz_us] 80-99 Automated erythrocyte mean corpuscular hemoglobin (mass per erythrocyte) 30 pg 25-34 Automated erythrocyte mean corpuscular hemoglobin concentration measurement ( mass/volume) 34 g/dL 32-36 Automated erythrocyte distribution width ratio 13.8 % 10.0-14.5 Automated blood platelet count (count/volume) 206 10*3/uL 130-400 Automated blood platelet mean volume measurement 11.7 [foz_us] 7.4-10.4 PT panel in platelet poor plasma by coagulation assay - 02/13/16 08:34 Prothrombin time (PT) in platelet poor plasma by coagulation assay 13.6 s 12.2-14.7 INR in platelet poor plasma or blood by coagulation assay 1.1 0.8-1.4 Activated partial thromboplastin time (aPTT) in platelet poor plasma bycoagulation assay - 02/13/16 08:34 Activated partial thromboplastin time (aPTT) in platelet poor plasma bycoagulation assay 31 s 24-35 Comprehensive metabolic panel - 02/13/16 08:34 Serum or plasma sodium measurement (moles/volume) 140 mmol/L 135-145 Serum or plasma potassium measurement (moles/volume) 3.6 mmol/L 3.6-5.0 Serum or plasma chloride measurement (moles/volume) 106 mmol/L 98-107 Carbon dioxide 23 mmol/L 21-32 Serum or plasma anion gap determination (moles/volume) 11 mmol/L 5-14 Serum or plasma urea nitrogen measurement (mass/volume) 24 mg/dL 7-18 Serum or plasma creatinine measurement (mass/volume) 0.76 mg/dL 0.60-1.30 Serum or plasma urea nitrogen/creatinine mass ratio 32 NRG Serum or plasma creatinine measurement with calculation of estimated glomerular filtration rate > NRG Serum or plasma glucose measurement (mass/volume) 88 mg/dL 70-105 Serum or plasma calcium measurement (mass/volume) 9.3 mg/dL 8.5-10.1 Serum or plasma total bilirubin measurement (mass/volume) 0.4 mg/dL 0.1-1.0 Serum or plasma alkaline phosphatase measurement (enzymatic activity/volume) 61 U/L 40-136 Serum or plasma aspartate aminotransferase measurement (enzymatic activity/ volume) 25 U/L 5-34 Serum or plasma alanine aminotransferase measurement (enzymatic activity/volume ) 33 U/L 0-55 Serum or plasma protein measurement (mass/volume) 6.8 g/dL 6.4-8.2 Serum or plasma albumin measurement (mass/volume) 4.1 g/dL 3.2-4.5 Methicillin resistant Staphylococcus aureus (MRSA) screening culture - 08:34 Methicillin resistant Staphylococcus aureus (MRSA) screening culture NEG NRG Encounters ACCT No. Visit Date/Time Discharge Status Pt. Type Provider Facility Loc./Unit Complaint [id number] 05/24/2015 15:08:54 05/28/2015 16:00:00 DIS Inpatient ELIJAH GONZALEZ [facility] [id number] 05/24/2015 17:08:46 Document Registration [id number] 06/03/2018 07:50:00 06/03/2018 23:59:59 CLS Outpatient RACHAEL LOPEZ ALTERATIONS SUPERVISOR [facility] RAD SCREENING [id number] 04/28/2017 12:11:00 04/28/2017 23:59:59 CLS Outpatient LURDES EDELMIRA L ALTERATIONS SUPERVISOR [facility] RAD R10.32 [id number] 02/13/2016 08:07:00 02/13/2016 09:35:00 DIS Outpatient DONNIE ALVARADO DO [facility] CARD THORACIC OUTLET SYNDROME [id number] 02/12/2016 13:56:00 02/12/2016 23:59:59 CLS Outpatient DONNIE ALVARADO DO [facility] RAD THORACIC OUTLET SYNDROME [id number] 10/03/2015 08:03:00 10/03/2015 23:59:59 CLS Outpatient TERRI FOSTER MD [facility] RAD NECK PAIN,SWOLLEN NECK [id number] 09/11/2015 10:07:00 09/11/2015 23:59:59 CLS Outpatient DONNIE ALVARADO DO [facility] RAD UPPER LEFT BREAST PAIN AND SWELLING [id number] 09/09/2015 15:27:00 09/09/2015 23:59:59 CLS Outpatient MORGAN JON ALTERATIONS SUPERVISOR [facility] RAD SWELLING,EDEMA,SUDDEN ONSET [id number] 05/22/2015 07:27:00 05/22/2015 23:59:59 CLS Outpatient CHEMO TURNER DO [facility] RAD SCREENING [id number] 09/15/2013 07:39:00 09/15/2013 23:59:59 CLS Outpatient CHEMO TURNER DO [facility] RAD SCREENING [id number] 12/29/2012 08:04:00 12/29/2012 23:59:59 CLS Outpatient [id number] 11/16/2012 07:52:00 11/16/2012 23:59:59 CLS Outpatient [id number] 02/10/2011 05:48:00 Document Registration [id number] 02/06/2011 12:06:00 Document Registration [id number] 02/04/2011 11:13:00 Document Registration [id number] 08/04/2018 16:30:00 08/04/2018 23:59:59 CLS Outpatient SHWETHA FRAGA [facility]
[2018-08-10 19:17] LABS: BASOPHILS % (AUTO) 1 % (0-10); EOSINOPHILS # (AUTO) 0.1 10^3/uL (0.0-0.3); EOSINOPHILS % (AUTO) 2 % (0-10); HEMATOCRIT 41 % (35-52); HEMOGLOBIN 14.1 G/DL (11.5-16.0); LYMPHOCYTES # (AUTO) 2.9 X 10^3 (1.0-4.0); LYMPHOCYTES % (AUTO) 35 % (12-44); MEAN CORPUSCULAR HEMOGLOBIN 30 PG (25-34); MEAN CORPUSCULAR HGB CONC 34 G/DL (32-36); MEAN CORPUSCULAR VOLUME 89 FL (80-99); MEAN PLATELET VOLUME 10.9 FL (7.4-10.4); MONOCYTES # (AUTO) 0.8 X 10^3 (0.0-1.0); MONOCYTES % (AUTO) 9 % (0-12); NEUTROPHILS # (AUTO) 4.4 X 10^3 (1.8-7.8); NEUTROPHILS % (AUTO) 53 % (42-75); PLATELET COUNT 248 10^3/uL (130-400); RED CELL DISTRIBUTION WIDTH 13.9 % (10.0-14.5); WHITE BLOOD COUNT 8.2 10^3/uL (4.3-11.0)
[2018-08-10 19:19] LABS: AMPHETAMINE SCREEN, URINE POSITIVE (NEGATIVE); TRICYCLIC ANTIDEPRESSANTS SCRE POSITIVE (NEGATIVE)
[2018-08-10 19:20] LABS: BARBITURATE SCREEN URINE NEGATIVE (NEGATIVE); BENZODIAZEPINES SCREEN URINE NEGATIVE (NEGATIVE); CANNABINOID SCREEN, URINE NEGATIVE (NEGATIVE); COCAINE SCREEN URINE NEGATIVE (NEGATIVE); METHADONE STAT NEGATIVE (NEGATIVE); METHAMPHETAMINE SCREEN URINE S NEGATIVE (NEGATIVE); OPIATE SCREEN URINE NEGATIVE (NEGATIVE); OXYCODONE STAT NEGATIVE (NEGATIVE); PROPOXYPHENE STAT NEGATIVE (NEGATIVE)
[2018-08-10 19:33] LABS: INR 1.1 (0.8-1.4)
--- NOTE | 2018-08-10 19:38 | Diagnostic Imaging Report ---
INDICATION: Chest pain. Comparison made with prior examination from 04/28/2017. FINDINGS: The heart size, mediastinal configuration, and pulmonary vascularity are within normal limits. There is no pleural effusion, pneumothorax, or pneumonia. The osseous structures are unremarkable. IMPRESSION: No acute cardiopulmonary abnormality. Dictated by: Dictated on workstation # [id number]
[2018-08-10 19:41] LABS: ALANINE AMINOTRANSFERASE 31 U/L (0-55); ALBUMIN 4.3 GM/DL (3.2-4.5); ALKALINE PHOSPHATASE 79 U/L (40-136); AMYLASE 32 U/L (25-125); BILIRUBIN,TOTAL 0.5 MG/DL (0.1-1.0); BUN/CREATININE RATIO 19; CALCIUM 9.6 MG/DL (8.5-10.1); CARBON DIOXIDE 25 MMOL/L (21-32); CHLORIDE 101 MMOL/L (98-107); CREATINE KINASE 198 U/L (29-168); CREATININE SERUM 0.95 MG/DL (0.60-1.30); GFR ESTIMATED > 60; GLUCOSE 103 MG/DL (70-105); LIPASE 17 U/L (8-78); POTASSIUM 3.8 MMOL/L (3.6-5.0); SODIUM 140 MMOL/L (135-145); TOTAL PROTEIN 7.2 GM/DL (6.4-8.2)
[2018-08-10 19:48] LABS: CREATINE KINASE MB 2.1 NG/ML (<6.6); MYOGLOBIN SERUM 63.1 NG/ML (10.0-92.0)
[2018-08-10] MEDS ORDERED: ONDANSETRON 4 MG/2 ML (SDV) Z0FRAN IVP ONE (20:15)
--- NOTE | 2018-08-10 22:36 | ED Cardiac General ---
History of Present Illness General Chief Complaint: Cardiac/General Problems Stated Complaint: EKG ABNORMAL SENT FROM URGENT CARE Nursing Triage Note: PT REPORTS HAVING BEEN SEEN AN URGENT CARE THIS EVENING AND BEING SENT HERE FOR ABNORMAL EKG. PT HAS BEEN HOT AND NOT FEELING WELL ALL DAY WITH TINGLING LIPS. PT ALSO REPORTS TIGHT CHEST AND LEFT SHOULD BLADE PAIN. Source: patient History of Present Illness Date Seen by Provider: Aug 10, 2018 Time Seen by Provider: 18:38 Initial Comments PT ARRIVES VIA POV SENT HERE FROM [facility] [place] [place] [facility] PROVIDER PT WORKS AT "[employer]" AND HAS ON-SITE PROVIDER FROM [facility] [place] [place] [facility] PT STATES SHE NOTICED SOME BILATERAL LOWER LEG SWELLING ON WEDNESDAY AND WAS SEEN AT [facility] [place] [place] [facility] PT HAD LAB DONE THIS AM AT WORK PT STATES HER BLOOD PRESSURE WAS FINE THIS AM MID MORNING SHE STARTED GETTING HOT AND DIZZY AND WENT TO OFFICE, BP WAS 180/97 STARTED GETTING NAUSEATED AND ATE SOME PEANUT BUTTER AND SHE FELT BETTER, AND BP WENT DOWN TO 134/88 ATE LUNCH, BUT DIDN'T FELL ALOT BETTER AT 1630, SHE CALLED THE ON-SIT PROVIDER AND WAS TOLD TO GO TO ER, BUT WENT TO [facility] [place] [place] [facility] INSTEAD HAD EKG DONE THERE, AND TEMPORARY DATA ENTRY CLERK SAID "IT DIDN'T LOOK RIGHT--SHE DIDN'T KNOW WHAT IT WAS" SO SENT HERE PT WAS GIVEN 4 BABY ASPIRIN THERE HAS NOT BEEN DX WITH HTN BEFORE ON ARRIVAL, PT C/O MILD NAUSEA, NO VOMITING STILL FEELING HOT LIPS WERE KIND OF TINGLY EARLIER, NOT NOW FELT LIGHT HEADED AND "OUT OF SORTS" HAD SLIGHT LEFT LATERAL CHEST TIGHTNESS AND PAIN IN LEFT SHOULDER BLADE AROUND 1600--STATES SHE WAS MOVING BOXES AT THE TIME AND THOUGHT IT WAS FROM PULLED MUSCLES. HAS NOT TAKEN ANYTHING FOR PAIN NO HEADACHE NO MOTOR DEFICITS NO SHORTNESS OF BREATH LEGS ARE NOT SWOLLEN TODAY NO PALPITATIONS PT STATES SHE IS DIABETIC. HGB A1C TODAY 6.1. ALL OTHER LAB WAS NORMAL. PCP: ON-SITE PROVIDER AT HER WORK, THROUGH [facility] Allergies and Home Medications Allergies Coded Allergies: No Known Drug Allergies (Unverified , 02/06/11) Home Medications Acetaminophen 650 Mg Cplt, 650 MG PO BID, (Reported) Amitriptyline Hcl 50 Mg Tablet, DAILY, (Reported) Cetirizine Hcl 10 Mg Capsule, DAILY, (Reported) Cranberry Conc/Ascorbic Acid 1 Each Capsule, BID, (Reported) Hydrochlorothiazide 25 Mg Tab, DAILY, (Reported) Hydrocodone Bit/Acetaminophen 1 Each Tablet, 0.5-1 EACH PO Q 4 - 6 HRS PRN Prescribed by: LONDON AGRAWAL on 02/04/11 1239 Meloxicam 7.5 Mg Tablet, 7.5 MG PO BID, (Reported) [sprintec] , DAILY, (Reported) Patient Home Medication List Home Medication List Reviewed: Yes Review of Systems Review of Systems Constitutional: see HPI, dizziness, other (FELT HOT) EENTM: See HPI; No Blurred Vision, No Double Vision Respiratory: No Symptoms Reported; Denies Cough, Denies Shortness of Air Cardiovascular: See HPI, Chest Pain, Edema, Lightheadedness; Denies Palpitations, Denies Syncope Gastrointestinal: Denies Abdominal Pain, Denies Diarrhea; Nausea; Denies Vomiting Genitourinary: No Symptoms Reported Musculoskeletal: see HPI Skin: no symptoms reported Psychiatric/Neurological: See HPI; Denies Headache Endocrine: No Symptoms Reported Hematologic/Lymphatic: No Symptoms Reported Past Bzzasht-Kwngru-Zgltga Hx Patient Social History Alcohol Use: Occasionally Uses Recreational Drug Use: No Smoking Status: Never a Smoker Recent Foreign Travel: No Contact w/Someone Who Travel: No Recent Infectious Disease Expo: No Recent Hopitalizations: No Physical Abuse: No Sexual Abuse: No Seasonal Allergies Seasonal Allergies: Yes Past Medical History Surgeries: Yes (LAPAROSCOPIES X 2; HYST/BSO; RIGHT KNEE SCOPE ) Appendectomy, Gallbladder, Hysterectomy, Oophorectomy, Orthopedic, Tonsillectomy Respiratory: No Cardiac: No Neurological: No Reproductive Disorders: Yes (CPP, ENDOMETRIOSIS, FATUMA) 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 0.0oz. 175.020749ci; 58.9 BMI Method:Stated General Appearance: No Apparent Distress, Obese (MORBIDLY OBESE,--IN EXCESS OF 350 LBS. MALODOROUS) Neck: Full Range of Motion, Normal Inspection, Non Tender, Supple; No Carotid Bruit, No JVD Respiratory: Normal Breath Sounds, No Accessory Muscle Use, No Respiratory Distress, Other (LEFT LOWER LATERAL CHEST WALL TENDERNESS--PALPATION REPRODUCES PAIN . NO RASH OR EXTERNAL EVIDENCE OF TRAUMA) Cardiovascular: Regular Rate, Rhythm, No Murmur, Normal Peripheral Pulses Gastrointestinal: Non Tender, Soft Extremity: Normal Capillary Refill, Pedal Edema (TRACE BILATERALLY) Neurologic/Psychiatric: Alert, Oriented x3, No Motor/Sensory Deficits, Normal Mood/Affect, automation and controls manager II-XII Norm as Tested Skin: Normal Color, Warm/Dry; No Rash Progress/Results/Core Measures Results/Orders Lab Results Laboratory Tests Test 08/10/18 19:00 08/10/18 19:09 08/10/18 22:09 Range/Units Urine Opiates Screen NEGATIVE NEGATIVE Urine Oxycodone Screen NEGATIVE NEGATIVE Urine Methadone Screen NEGATIVE NEGATIVE Urine Propoxyphene Screen NEGATIVE NEGATIVE Urine Barbiturates Screen NEGATIVE NEGATIVE Ur Tricyclic Antidepressants Screen POSITIVE H NEGATIVE Urine Phencyclidine Screen NEGATIVE NEGATIVE Urine Amphetamines Screen POSITIVE H NEGATIVE Urine Methamphetamines Screen NEGATIVE NEGATIVE Urine Benzodiazepines Screen NEGATIVE NEGATIVE Urine Cocaine Screen NEGATIVE NEGATIVE Urine Cannabinoids Screen NEGATIVE NEGATIVE White Blood Count 8.2 4.3-11.0 10^3/uL Red Blood Count 4.65 4.35-5.85 10^6/uL Hemoglobin 14.1 11.5-16.0 G/DL Hematocrit 41 35-52 % Mean Corpuscular Volume 89 80-99 FL Mean Corpuscular Hemoglobin 30 25-34 PG Mean Corpuscular Hemoglobin Concent 34 32-36 G/DL Red Cell Distribution Width 13.9 10.0-14.5 % Platelet Count 248 130-400 10^3/uL Mean Platelet Volume 10.9 H 7.4-10.4 FL Neutrophils (%) (Auto) 53 42-75 % Lymphocytes (%) (Auto) 35 12-44 % Monocytes (%) (Auto) 9 0-12 % Eosinophils (%) (Auto) 2 0-10 % Basophils (%) (Auto) 1 0-10 % Neutrophils # (Auto) 4.4 1.8-7.8 X 10^3 Lymphocytes # (Auto) 2.9 1.0-4.0 X 10^3 Monocytes # (Auto) 0.8 0.0-1.0 X 10^3 Eosinophils # (Auto) 0.1 0.0-0.3 10^3/uL Basophils # (Auto) 0.0 0.0-0.1 10^3/uL Prothrombin Time 14.0 12.2-14.7 SEC INR Comment 1.1 0.8-1.4 Activated Partial Thromboplast Time 32 24-35 SEC Sodium Level 140 135-145 MMOL/L Potassium Level 3.8 3.6-5.0 MMOL/L Chloride Level 101 98-107 MMOL/L Carbon Dioxide Level 25 21-32 MMOL/L Anion Gap 14 5-14 MMOL/L Blood Urea Nitrogen 18 7-18 MG/DL Creatinine 0.95 0.60-1.30 MG/DL Estimat Glomerular Filtration Rate > 60 BUN/Creatinine Ratio 19 Glucose Level 103 70-105 MG/DL Calcium Level 9.6 8.5-10.1 MG/DL Corrected Calcium 9.4 8.5-10.1 MG/DL Magnesium Level 2.0 1.8-2.4 MG/DL Total Bilirubin 0.5 0.1-1.0 MG/DL Aspartate Amino Transf (AST/SGOT) 27 5-34 U/L Alanine Aminotransferase (ALT/SGPT) 31 0-55 U/L Alkaline Phosphatase 79 40-136 U/L Total Creatine Kinase 198 H 29-168 U/L Creatine Kinase MB 2.1 <6.6 NG/ML Myoglobin 63.1 10.0-92.0 NG/ML Troponin I < 0.028 < 0.028 <0.028 NG/ML B-Type Natriuretic Peptide < 10.0 <100.0 PG/ML Total Protein 7.2 6.4-8.2 GM/DL Albumin 4.3 3.2-4.5 GM/DL Amylase Level 32 25-125 U/L Lipase 17 8-78 U/L TSH Given Testing 3.25 0.35-4.94 UIU/ML Serum Test, Qualitative NEGATIVE NEGATIVE My Orders Orders - MAGDI LEONARDO DO Cbc With Automated Diff (08/10/18 18:39) Magnesium (08/10/18 18:39) Chest 1 View, Ap/Pa Only (08/10/18 18:39) Ekg Tracing (08/10/18 18:39) Cardiac Profile 1 (08/10/18 18:39) Comprehensive Metabolic Panel (08/10/18 18:39) Myoglobin Serum (08/10/18 18:39) Protime With Inr (08/10/18 18:39) Partial Thromboplastin Time (08/10/18 18:39) O2 (08/10/18 18:39) Monitor-Rhythm Ecg Trace Only (08/10/18 18:39) Aspirin Chewable Tablet (Baby Aspirin Ch (08/10/18 18:45) Saline Lock/Iv-Start (08/10/18 18:39) Creatine Kinase (08/10/18 18:39) Creatine Kinase Mb (08/10/18 18:39) Lipase (08/10/18 18:39) Amylase (08/10/18 18:39) BNP (08/10/18 18:39) Drug Screen Stat (Urine) (08/10/18 18:39) Hcg,Qualitative Serum (08/10/18 18:39) Thyroid Analyzer (08/10/18 18:39) Aspirin Chewable Tablet (Baby Aspirin Ch (08/10/18 18:45) Ondansetron Injection (Zofran Injectio (08/10/18 20:15) Ekg Tracing (08/10/18 21:58) Troponin I (08/10/18 21:58) Medications Given in ED Vital Signs/I&O 08/10/18 08/10/18 18:36 22:51 Temp 97.8 97.8 Pulse 84 75 Resp 16 16 B/P (MAP) 136/78 (97) 113/77 (89) Pulse Ox 100 100 Blood Pressure Mean: 97 Progress Progress Note : Progress Note UNEVENTFUL ER STAY NAUSEA RESOLVED WITH ZOFRAN PT HAD 3 HOUR REPEAT TROPONIN AND EKG--BOTH NORMAL Initial ECG Impression Date: Aug 10, 2018 Initial ECG Impression Time: 18:37 Initial ECG Rate: 81 Initial ECG Rhythm: Normal Sinus Initial ECG Impression: Nonspecific Changes (BORDERLINE INFERIOR Q WAVES) Initial ECG Comparisson: No Previous ECG Available EKG : EKG Time: 22:00 Rate: 77 Rhythm: Normal Sinus ECG Comparisson: Unchanged ECG Impression: Nonspecific Changes (BORDERLINE INFERIOR Q WAVES) Diagnostic Imaging Comments CXR--NO ACUTE PROCESS, PER RADIOLOGIST REPORT Reviewed: Reviewed by Me Departure Impression Primary Impression: Left-sided chest wall pain Additional Impression: Labile blood pressure Disposition: 01 HOME, SELF-CARE Condition: Stable Departure-Patient Inst. Referrals: DONNIE ALVARADO DO (PCP/Family) Primary Care Physician Patient Instructions: Chest Pain (DC), DASH Diet, Heart Healthy Diet Add. Discharge Instructions: FOLLOW UP WITH DR. ALVARADO TOMORROW FOR FURTHER CARE RETURN TO ER IF WORSE All discharge instructions reviewed with patient and/or family. Voiced understanding. MAGDI LEONARDO DO Aug 10, 2018 22:36
[2018-08-10 22:51] VITALS: BP 113/77
== END 2018-08-10 22:51 | disposition home or self-care (01) ==
LOC: EDUNIT# 18:26 → ER 18:27
DX: R07.89 Other chest pain (principal); R03.0 Elevated blood-pressure reading, without diagnosis of hypertension; K58.9 Irritable bowel syndrome, unspecified; E11.9 Type 2 diabetes mellitus without complications; F41.9 Anxiety disorder, unspecified; F31.9 Bipolar disorder, unspecified; Z98.890 Other specified postprocedural states; Z90.710 Acquired absence of both cervix and uterus; Z90.49 Acquired absence of other specified parts of digestive tract; Z90.89 Acquired absence of other organs; Z87.448 Personal history of other diseases of urinary system
CPT/HCPCS: 36415; 71045; 80053; 80306; 82150; 82550; 82553; 83690; 83735; 83874; 83880; 84443; 84484; 84703; 85025; 85610; 85730; 93005; 93041

== ENCOUNTER → 2019-03-03 | Outpatient (CLI) | payer BC ==
--- NOTE | 2019-03-03 13:42 | Diagnostic Imaging Report ---
PROCEDURE: US right lower extremity venous. TECHNIQUE: Multiple real-time grayscale images were obtained over the right lower extremity in various projections. Additional spectral analysis and color Doppler duplex images were also obtained. INDICATION: Right leg pain. Patient reports feeling a pop with pain and swelling in the region of the right calf. FINDINGS: There is no evidence of right lower extremity DVT. Right lower extremity deep venous system shows normal compressibility with normal response to augmentation and Valsalva. In addition, the right calf soft tissues were evaluated. No fluid collection is seen to suggest intramuscular hematoma or muscle tear. Note that study is moderately compromised due to patient large body habitus. IMPRESSION: 1. No evidence of right lower extremity DVT. 2. No focal fluid collection in the right calf at the area of pain is identified. Dictated by: Dictated on workstation # [id number]
== END ==
LOC: RAD 12:05
PROVIDERS: ATTEND Nurse Practitioner Family
DX: S86.811A Strain of other muscle(s) and tendon(s) at lower leg level, right leg, initial encounter (principal); F31.9 Bipolar disorder, unspecified; N80.9 Endometriosis, unspecified; E66.01 Morbid (severe) obesity due to excess calories; M54.2 Cervicalgia

== ENCOUNTER → 2019-06-05 | Outpatient (CLI) | payer BC ==
--- NOTE | 2019-06-05 10:44 | Diagnostic Imaging Report ---
Indication: Routine screening. Comparison is made prior mammogram from 06/03/2018 and 05/22/2015. 2-D and 3-D bilateral screening mammography was performed with CAD. Scattered fibroglandular densities are identified bilaterally. The parenchymal pattern is stable. No mass or malignant appearing microcalcifications are seen. Axillae are unremarkable. IMPRESSION: BI-RADS Category 1 No mammographic features suspicious for malignancy are identified. ACR BI-RADS Category 1: Negative. Result letter will be mailed to the patient. Note: At least 10% of breast cancer is not imaged by mammography. Dictated by: Dictated on workstation # [id number]
== END ==
LOC: RAD 07:25
PROVIDERS: ATTEND Nurse Practitioner Family
DX: Z12.31 Encounter for screening mammogram for malignant neoplasm of breast (principal)
CPT/HCPCS: 77067

== ENCOUNTER → 2020-07-26 | Outpatient (CLI) | payer BC | LOC: LABNPT 05:16 | PROVIDERS: ATTEND Emergency Medicine | DX: Z01.812 Encounter for preprocedural laboratory examination (principal); Z53.9 Procedure and treatment not carried out, unspecified reason ==

== ENCOUNTER → 2020-07-29 | Outpatient (CLI) | payer BC | LOC: LABNPT 08:49 | PROVIDERS: ATTEND Emergency Medicine | DX: Z01.812 Encounter for preprocedural laboratory examination (principal); Z20.822 Contact with and (suspected) exposure to COVID-19 | CPT/HCPCS: 87635 ==

== ENCOUNTER → 2020-08-13 | Outpatient (CLI) | payer BC ==
--- NOTE | 2020-08-13 11:05 | Diagnostic Imaging Report ---
INDICATION: Fall. Swelling. Trauma. Pain. COMPARISON: None. FINDINGS: Three views of the right knee joint demonstrate no acute fracture or dislocation. No focal osseous lesions are seen. Mild degenerative changes are noted and consist primarily of small tricompartmental osteophyte formations. No significant joint effusion is seen. The surrounding soft tissue structures are unremarkable. There are no radiopaque foreign bodies. IMPRESSION: 1. No acute fractures or dislocations of the right knee joint. Dictated by: Dictated on workstation # [id number]
== END ==
LOC: RAD 09:26
PROVIDERS: ATTEND Nurse Practitioner Family
DX: S80.911A Unspecified superficial injury of right knee, initial encounter (principal); W19.XXXA Unspecified fall, initial encounter
CPT/HCPCS: 73562

== ENCOUNTER → 2020-10-15 | Outpatient (CLI) | payer BC | LOC: LABNPT 07:01 | PROVIDERS: ATTEND Emergency Medicine | DX: Z01.812 Encounter for preprocedural laboratory examination (principal); Z20.822 Contact with and (suspected) exposure to COVID-19 | CPT/HCPCS: 87635 ==